=== PATIENT | male | born 1940 | race Caucasian/White ===

== ENCOUNTER 2017-04-05 11:20 | Outpatient (CLI) | payer MEDICARE | END 2017-04-05 11:21 | disposition home or self-care (01) | LOC: BICRAD 11:20 | PROVIDERS: ATTEND Family Medicine | DX: R05 Cough (principal); R07.9 Chest pain, unspecified; R06.02 Shortness of breath; R50.9 Fever, unspecified; K44.9 Diaphragmatic hernia without obstruction or gangrene | CPT/HCPCS: 71046 ==

== ENCOUNTER 2018-04-11 21:30 | Observation (INO) | payer MEDICARE ==
[2018-04-11 22:37] LABS: #Eosinphils 0.1 thou/uL (0.0-0.7); #Lymphocytes 1.7 thou/uL (1.20-3.40); #Monocytes 0.9 thou/uL (0.11-0.59); #Neutrophils 10.1 thou/uL (1.40-6.50); %Basophils 0.1 % (0.0-1.0); %Eosinophils 0.4 % (0.0-10.0); %Lymphocytes 13.2 % (21.0-51.0); %Monocytes 7.2 % (0.0-10.0); Hemoglobin 13.4 g/dL (14.0-18.0); Mean Corpuscular HGB CONC 31.4 g/dL (32.0-36.0); Mean Corpuscular Hemoglobin 26.2 pg (27.0-31.0); Mean Corpuscular Volume 83.2 fL (78.0-98.0); Mean Platelet Volume 8.4 fL (7.4-10.4); Platelet Count 266 thou/uL (130-400); RBC Distribution Width 13.5 % (11.5-14.5); Red Blood Cell (RBC) Count 5.12 mill/uL (4.70-6.10); White Blood Cell (WBC) Count 12.8 thou/uL (4.8-10.8)
[2018-04-11 23:00] LABS: ALT (SGPT) 14 U/L (8-55); AST (SGOT) 17 U/L (5-34); Albumin 3.8 g/dL (3.4-4.8); Alkaline Phosphatase 111 U/L (40-150); Anion Gap 13 mmol/L (10-20); BUN (Urea Nitrogen) 16 mg/dL (8.4-25.7); Bilirubin, Total 1.9 mg/dL (0.2-1.2); Calc. Creatinine Clearance 0 mL/min (70-130); Calcium 9.3 mg/dL (7.8-10.44); Carbon Dioxide 28 mmol/L (23-31); Chloride 99 mmol/L (98-107); Estimated GFR-MDRD 83; Globulin 3.5 g/dL (2.4-3.5); Glucose 119 mg/dL (83-110); Lipase 24 U/L (8-78); Potassium 3.3 mmol/L (3.5-5.1); Protein, Total 7.3 g/dL (5.8-8.1); Sodium 137 mmol/L (136-145)
--- NOTE | 2018-04-11 23:05 | RAD ---
EXAM: CHEST ONE VIEW: 04/11/18 HISTORY: Chest pain. COMPARISON: 04/11/18. Heart size is within normal limits. Evidence for hiatal hernia. Biapical pleural thickening. No confl uent pneumonia, overt edema or pleural effusion. IMPRESSION: Stable chest. Mild stable chronic changes. Evidence for hiatal hernia. No acute process. POS: [facility]
[2018-04-12] MEDS ORDERED: Nitroglycerin 0.4 MG TAB (25 Tab Bottle) ONE (00:29)
[2018-04-12] MEDS ORDERED: Acetaminophen 500 MG TAB ONE (00:34)
--- NOTE | 2018-04-12 01:06 | PDOC.FPRHP ---
- History of Present Illness Chief Complaint: chest pain History of Present Illness: The patient is a 77YOM with a PMH significant for 3-vessel CAD, HTN, and HLD who presented to the ED in [place] per the urging of his daughter with a CC of chest pain that had been ongoing since 0300 on 04/11/18. The patient states that he was awoken from his sleep with a 6/10 pressure-like sensation in his left chest that radiated into his left neck and jaw. He reports that the pain was continuous and was finally relieved by PO tylenol given to him in the ED. He did take an excedrin and advil as home but neither helped. He reported worsening up the pain with deep inspiration as well. He denied any associated N/ V, diaphoresis, SOB, orthopnea, or PND. He did endorse a non-productive cough but denied any associated fever/chills or URI symptoms. ED Course: 1g PO tylenol - Allergies/Adverse Reactions Allergies Allergy/AdvReac Type Severity Reaction Status Date / Time Tetracyclines Allergy Verified 04/12/18 01:11 - Home Medications Medication Instructions Recorded Confirmed Type Amlodipine [Norvasc] 5 mg PO DAILY 04/12/18 04/12/18 History Aspirin 325 mg PO DAILY 04/12/18 04/12/18 History Atorvastatin Calcium 20 mg PO HS 04/12/18 04/12/18 History Folic Acid 1 mg PO DAILY 04/12/18 04/12/18 History Hydrochlorothiazide 25 mg PO DAILY 04/12/18 04/12/18 History Omeprazole 20 mg PO DAILY 04/12/18 04/12/18 History - History PMHx: 3 vessel CAD (non flow limiting) s/p cath in 2012, HTN, HLD, hearing impairment PSHx: marie, cataract surgery, tonsillectomy FHx: patient reports no family hx of heart disease. Social: Former smoker. Quit over 10 years ago. 30 pack year smoking hx. Drinks about 200 ml of vodka every 2-3 hours for 2-3 years. last drink about 12 pm on . Tried cocaine about 35 years ago. Lives with in [place]. Retired. - Review of Systems General: reports: fever/chills (101 at [place] [facility] according to patient). denies : fatigue Eyes: denies: eye pain, vision changes ENT: denies: nasal congestion, rhinorrhea Respiratory: reports: cough (dry cough) Cardiovascular: reports: chest pain. denies: palpitation, paroxysmal nocturnal dyspnea, orthopnea Gastrointestinal: denies: nausea, vomiting, diarrhea, abdominal pain Genitourinary: denies: dysuria, polyuria Skin: denies: rashes, lesions Musculoskeletal: denies: pain, tenderness, swelling Neurological: reports: other (random left arm tingling/pain). denies: numbness , weakness Psychological: denies: anxiety, depression - Vital signs BP: 145/61 HR: 81 RR: 20 Tmax: 48151.4F Pox: % on RA Wt: 102.1kg - Physical Exam Constitutional: NAD, awake, alert and oriented, well developed HEENT: normocephalic and atraumatic, grossly normal vision, MMM, other ( decreased hearing, wearing hearing aids) Neck: supple, FROM, no LAD, no JVD, no bruits Chest: no-tender to palpation Heart: RRR, normal S1/S2, no murmurs/rubs/gallops, pulses present, no edema Lungs: CTAB, no respiratory distress, good air movement, no rales/rhonchi, no wheezing Abdomen: soft, non-tender, bowel sounds present Musculoskeletal: normal structure, ROM grossly normal Neurological: no focal deficit, CN II-XII intact (grossly) Skin: no rash/lesions, good turgor, other (telangiectasias on chest) Heme/Lymphatic: no unusual bruising or bleeding, no purpura Psychiatric: normal mood and affect, good judgment and insight, intact recent and remote memory FMR H&P: Results - Labs Result Diagrams: 04/11/18 22:26 04/11/18 22:25 Lab results: WBC 12.8 thou/uL (4.8-10.8) H 04/11/18 22:26 Hgb 13.4 g/dL (14.0-18.0) L 04/11/18 22:26 Hct 42.6 % (42.0-52.0) 04/11/18 22:26 MCV 83.2 fL (78.0-98.0) 04/11/18 22:26 Plt Count 266 thou/uL (130-400) 04/11/18 22:26 Neutrophils % 79.0 % (42.0-75.0) H 04/11/18 22:26 Sodium 137 mmol/L (136-145) 04/11/18 22:25 Potassium 3.3 mmol/L (3.5-5.1) L 04/11/18 22:25 Chloride 99 mmol/L (98-107) 04/11/18 22:25 Carbon Dioxide 28 mmol/L (23-31) 04/11/18 22:25 BUN 16 mg/dL (8.4-25.7) 04/11/18 22:25 Creatinine 0.89 mg/dL (0.7-1.3) 04/11/18 22:25 Glucose 119 mg/dL (83-110) H 04/11/18 22:25 Calcium 9.3 mg/dL (7.8-10.44) 04/11/18 22:25 Total Bilirubin 1.9 mg/dL (0.2-1.2) H 04/11/18 22:25 AST 17 U/L (5-34) 04/11/18 22:25 ALT 14 U/L (8-55) 04/11/18 22:25 Alkaline Phosphatase 111 U/L (40-150) 04/11/18 22:25 B-Natriuretic Peptide 92.6 pg/mL (0-100) 04/11/18 22:25 Serum Total Protein 7.3 g/dL (5.8-8.1) 04/11/18 22:25 Albumin 3.8 g/dL (3.4-4.8) 04/11/18 22:25 Lipase 24 U/L (8-78) 04/11/18 22:25 - EKG Interpretation EKG: NSR. - Radiology Interpretation Chest x-ray Status: report reviewed by me (mild hyperinflation w/ increased lung markings in B/L bases not c/w PNA or effusions) FMR H&P: A/P - Problem List (1) Atypical chest pain Current Visit: Yes Status: Acute Code(s): R07.89 - OTHER CHEST PAIN (2) Leukocytosis Current Visit: Yes Status: Acute Code(s): D72.829 - ELEVATED WHITE BLOOD CELL COUNT, UNSPECIFIED (3) Fever Current Visit: Yes Status: Acute Code(s): R50.9 - FEVER, UNSPECIFIED (4) CAD (coronary artery disease) Current Visit: Yes Status: Chronic Code(s): I25.10 - ATHSCL HEART DISEASE OF [place] CORONARY ARTERY W/O ANG PCTRS Qualifiers: Coronary Disease-Associated Artery/Lesion type: [place] artery (5) HTN (hypertension) Current Visit: Yes Status: Chronic Code(s): I10 - ESSENTIAL (PRIMARY) HYPERTENSION (6) Alcohol abuse Current Visit: Yes Status: Chronic Code(s): F10.10 - ALCOHOL ABUSE, UNCOMPLICATED (7) History of tobacco abuse Current Visit: Yes Status: Chronic Code(s): Z87.891 - PERSONAL HISTORY OF NICOTINE DEPENDENCE (8) HLD (hyperlipidemia) Current Visit: Yes Status: Acute Code(s): E78.5 - HYPERLIPIDEMIA, UNSPECIFIED (9) SIRS (systemic inflammatory response syndrome) Current Visit: Yes Status: Acute Code(s): R65.10 - SIRS OF NON-INFECTIOUS ORIGIN W/O ACUTE ORGAN DYSFUNCTION (10) Hypokalemia Current Visit: Yes Status: Acute Code(s): E87.6 - HYPOKALEMIA - Plan 77YOM with a PMH significant for known 3-vessel CAD found on LHC in 2012, HTN, and HLD who was transferred from the [place] ED after presenting there with a CC of chest pain that had been ongoing since 0300 yesterday. Atypical chest pain: - Patient reports that the pain was exacerbated with deep inspiration and was relieved with PO tylenol. However, patient has known CAD that did not require stent placement 5 years ago. Would benefit from a repeat stress test; however, patient has declined as he says he would not be willing to undergo any stenting or a repeat LHC should the stress test come back positive. States he only went to the ED because his daughter would not get off his case about it. Said he otherwise would have "stayed home and waited for the inevitable." - Could just be 2/2 pericarditis since relieved with tylenol. Will order PRN ibuprofen should pain return and see if this also helps alleviate his pain. CPR pending as well. - Will therefore not order a stress test but will order a TTE for in the AM to eval for pericarditis. - Will also order a FLP and adjust atorvastatin dosing accordingly based on results. - Will continue home ASA dosing. SIRS without a source: - Patient had a WBC of 12.8 with a Tmax of 100.4F on presentation to the ED in [place]. - CXR neg for infectious process. UA pending. - Will continue to monitor WBC with AM CBC. Hypokalemia: - K of 3.3 at [facility]. - Will order a repeat CMP in the AM and give an AM 40meq PO with breakfast. 3-vessel [facility]: - Aware, will resume home meds & adjust statin PRN based on AM FLP. HTN: - Aware, will resume home meds. HLD: - Aware, will resume home meds. EtOH Abuse: - Aware, last drink was 12:00 yesterday but patient reports quitting on and off randomly w/o issues but will order ASE protocol just to be safe. - Will counseling center director on need to quit. Dispo: Likely d/c later today w/ close follow-up with PCP. ABx: none IVFs: none DVT PPX: SCDs GI PPX: prilosec CODE STATUS: DNAR FMR H&P: Upper Level - Pertinent history 77 yr old male with PMH of 3 vessel CAD, HTN, HLD who presents for chest pain. Substernal chest pain that woke him from sleep at 0300 on 04/11/2018 (approx) 23 hours ago. [place] like pressure. Pain radiated to left neck and jaw. Pain was worse at 0300 (6 out of 10 scale). The pain lasted all day long. Tried excedrin and advil at home which gave him a little relief. Taking deep breaths made the pain worse. Lying flat seems to make pain worse. Took tylenol in ER which helped pain. No nausea, no SOB. No PND, orthopnea, LE swelling. - Pertinent findings EKG: normal sinus rhythm with no ST changes or T wave inversions Gen: no acute distress, well appearing neck: no carotid bruits bilaterally Heart: RRR, no murmurs, rubs, gallops Lungs: BLL very subtle crackles, poor inspiratory effort, no wheezes, rhales, rhonchi Chest: no chest wall tenderness Abd: soft, nontender - Plan Date/Time: 04/12/18 0106 I, [Tia Yao], have evaluated this patient and agree with findings/plan as outlined by human resources intern resident. Pertinent changes/additions are listed here. 77 yr old male with significant CAD who presents with chest pain with onset in sleep, radiation to left jaw, no diaphoresis, SOB, or nausea. Atypical chest pain suspected to be 2/2 pericarditis -temp of 100.4 in ER. Leukocytosis. borderline tachycardia. no tachypnea. -significant cardiac RF's include: Known 3 vessel CAD, HTN, HLD, hx of smoking -Will check CRP -initiate NSAID therapy for suspected pericarditis -obtain ECHO. -Although his clinical picture seems c/w pericarditis, he has known CAD and therfore I have recommended a NM stress test to patient however he declines this and states if it were positive he would not elect to have a heart cath or stent placement. Patient states he came in because his daughter wanted him to otherwise he would have stayed home and let the "inevitable happen." Patient states he understands the consequences could result in a heart attack and should this pain be related to progression of his CAD. 3 vessel CAD -last heart [place] [address] Choi with no flow limiting disease -normal EF at that time -see above Leukocytosis with low grade fever -PE and CXR not c/w acute PNA -no urinary symptoms however will check UA -no focal explanation except his possible pericarditis hyperbilirubinemia -recheck CMP in AM -nml AST/ALT -strong alcohol abuse hx HTN -monitor and restart home meds HLD -check FLP, consider increase to high intensity statin if warranted alcohol abuse -will place patient on ASE protocol -alcohol cessation counseling provided PCP: Daniel Cardiology: Dr. Choi Diet: HH DVT ppx: SCDs GI ppx: None DISPO: anabel to tele obs. given that patient is declining an inpatient stress test, he will likely have a very short 1 or less midnight stay and be discharged home. Addendum - Attending - Attending Attestation Date/Time: 04/12/18 1655 I personally evaluated the patient and discussed the management with Dr. Cifuentes. I agree with the History, Examination, Assessment and Plan documented above with any addition or exceptions noted below. The patient presented with chest pain overnight that improved with tylenol and was exacerbated by deep inspiration. The patient has a known history of CAD. Patient is refusing a stress test despite multiple physicians recommending it. Will get an echo. Pt with history of heavy alcohol use. ASE protocol in place. He states he wants to quit drinking. Will monitor for signs of withdrawal and consider librium taper. We have discussed the risks and benefits of stress test.
[2018-04-12 02:27] LABS: Troponin I Less than 0.010 ng/mL (< 0.028)
[2018-04-12] MEDS ORDERED: Ibuprofen 800 MG TAB PO PRN (05:15)
[2018-04-12] MEDS ORDERED: Ondansetron ODT 4 MG TAB PO PRN (05:15)
[2018-04-12 05:50] LABS: Cardiac Risk 2.3 (Less than 4.5)
[2018-04-12 06:11] LABS: Bilirubin Negative (Negative); Blood, Urine Trace (Negative); Glucose, Urine (Dipstick) Negative (Negative); Leukocyte Negative (Negative); Nitrite Negative (Negative); Protein, Urine (Dipstick) Negative (Neg-Trace); Specific Gravity, Urine 1.015 (1.005-1.030)
[2018-04-12 06:24] LABS: Bacteria/HPF Rare-Few HPF (None Seen); Clarity Clear (Clear); RBC/HPF 0-3 HPF (0-3); Squamous Epithelial 0-3 HPF (0-3); WBC/HPF 0-3 HPF (0-3)
[2018-04-12] MEDS ORDERED: Folic Acid 1 MG TAB ONE (07:52)
[2018-04-12] MEDS ORDERED: Aspirin 325 MG TAB ONE (07:52)
[2018-04-12] MEDS ORDERED: Folic Acid 1 MG TAB PO SCH (09:00)
[2018-04-12] MEDS ORDERED: Aspirin 325 MG TAB PO SCH (09:00)
[2018-04-12] MEDS ORDERED: Amlodipine 5 MG TAB PO SCH (09:00)
[2018-04-12] MEDS ORDERED: Hydrochlorothiazide 25 MG TAB PO SCH (09:00)
--- NOTE | 2018-04-12 12:06 | PDOC.EVN ---
Event Note - Event Note Event Note: Conversation with Mr. Starkey, his daughter and Dr. Adams. Patient desires to go home. Flu negative. Stress test recommended and patient refused. We were waiting on echo, however patient and daughter do not wish to wait and desire outpatient workup and echo. Daughter has appt scheduled with Dr. Choi 04/28 and plans to call Saturday to try to get earlier appointment. Patient counseled to return to the ER if chest pain returns. Mr. Starkey says that he quit drinking alcohol yesterday. Recommended librium taper for discharge, however patient refused. He notes he has never had withdrawal symptoms in past. Discussed risk of seizures and DTs. Recommended immediate return to ED if any withdrawal symptoms occur. Plan for discharge with close outpatient follow up and return precautions given.
[2018-04-12] MEDS ORDERED: Atorvastatin Calcium 40 MG TAB PO SCH (21:00)
[2018-04-12] MEDS ORDERED: Atorvastatin Calcium 20 MG TAB PO SCH (21:00)
--- NOTE | 2018-04-15 14:52 | DIS ---
DATE OF ADMISSION: 04/11/2018 DATE OF DISCHARGE: 04/12/2018 RESIDENT: Colin Andrews DO CONSULTS: None. PROCEDURES: None. IMAGING: Echocardiogram performed, results to be followed up within clinic. DISCHARGE MEDICATIONS: 1. Omeprazole 20 mg p.o. daily. 2. Hydrochlorothiazide 25 mg p.o. daily. 3. Folic acid 1 mg p.o. daily. 4. Atorvastatin 40 mg p.o. at bedtime. 5. Amlodipine 5 mg p.o. daily. 6. Aspirin 325 mg p.o. daily. Discontinued medications: Atorvastatin 20 mg at bedtime. PRIMARY DIAGNOSIS: Atypical chest pain. SECONDARY DIAGNOSES: 1. Systemic inflammatory response syndrome criteria. 2. Hypokalemia. 3. Coronary artery disease. 4. Hypertension. 5. Hyperlipidemia. 6. Alcohol abuse. HISTORY OF PRESENT ILLNESS/HOSPITAL COURSE: Mr. Starkey is a 77-year-old male, who presents to the emergency department at the insistence of his daughter with a chief complaint of chest pain. He reports that the pain awoke him from sleep. It was pressure-like and radiated to his left upper jaw. He reports pain is continuous and finally relieved by p.o. Tylenol worsening pain with deep inspiration. He denied any associated nausea, vomiting, diaphoresis, or shortness of breath. He does report a nonproductive cough, but not any associated fever, chills, or URI symptoms. The patient was adamant that he does not want to undergo a stress test with results where he would not get another heart catheterization DNR and did not want any further workup. Risks and benefits were explained of bleeding without further workup including possible or severe disability. The patient verbalized understanding. Communicated this with his daughter as well. The patient and daughter state that we will do outpatient workup for these things. DISPOSITION: Guarded. DISCHARGE INSTRUCTIONS: 1. Location: Home. 2. Diet: Heart healthy, low-sodium. 3. Activity: As tolerated. 4. Followup: Follow up with wireless watcher and PCP as soon as possible for outpatient workup for further testing of chest pain. Job ID: [id number]
== END 2018-04-12 12:52 | disposition home or self-care (01) ==
LOC: ERS 21:30 → ERHOLD 23:42
PROVIDERS: ADMIT Family Medicine; ATTEND Family Medicine
DX: R07.89 Other chest pain (principal); R65.10 Systemic inflammatory response syndrome (SIRS) of non-infectious origin without acute organ dysfunction; E87.6 Hypokalemia; I10 Essential (primary) hypertension; I25.10 Atherosclerotic heart disease of native coronary artery without angina pectoris; I34.0 Nonrheumatic mitral (valve) insufficiency; I35.8 Other nonrheumatic aortic valve disorders; I36.1 Nonrheumatic tricuspid (valve) insufficiency; E78.5 Hyperlipidemia, unspecified; D72.829 Elevated white blood cell count, unspecified; F10.10 Alcohol abuse, uncomplicated; Z90.49 Acquired absence of other specified parts of digestive tract; Z88.1 Allergy status to other antibiotic agents; Z90.89 Acquired absence of other organs; Z87.891 Personal history of nicotine dependence; Z79.82 Long term (current) use of aspirin; Z79.899 Other long term (current) drug therapy
CPT/HCPCS: 71045; 80053; 80061; 81001; 83690; 83880; 84484 ×2; 85025; 86140; 87804 ×2; 93005; 93306; 99285; G0378; 36415

== ENCOUNTER 2022-05-25 05:55 | Day surgery (SDC) | payer MEDICARE ==
[2022-05-24 09:59] VITALS: BMI 26.9
[2022-05-25] MEDS ORDERED: PROPOFOL 40 ML ONE (06:43)
[2022-05-25] MEDS ORDERED: Lidocaine 1% PF 5 ML VIAL ONE (07:49)
[2022-05-25] MEDS ORDERED: PROPOFOL 200 MG/20 ML VIAL ONE (07:49)
[2022-05-25] MEDS ORDERED: Dronedarone HCl 400 MG TAB ONE (08:11)
== END 2022-05-25 09:20 | disposition home or self-care (01) ==
LOC: SDC 05:55
PROVIDERS: ATTEND Internal Medicine Cardiovascular Disease
PROC: B246ZZ4 Ultrasonography of Right and Left Heart, Transesophageal (ICD-10-PCS; principal; 2022-05-25)
PROC: 5A2204Z Restoration of Cardiac Rhythm, Single (ICD-10-PCS; 2022-05-25)
DX: I48.91 Unspecified atrial fibrillation (principal); I08.3 Combined rheumatic disorders of mitral, aortic and tricuspid valves; I10 Essential (primary) hypertension; I25.10 Atherosclerotic heart disease of native coronary artery without angina pectoris; E78.2 Mixed hyperlipidemia; K21.9 Gastro-esophageal reflux disease without esophagitis; Z87.891 Personal history of nicotine dependence; Z79.01 Long term (current) use of anticoagulants; Z79.899 Other long term (current) drug therapy; Z88.1 Allergy status to other antibiotic agents
CPT/HCPCS: 92960; 93005; 93010; 93312; J2704

== ENCOUNTER 2024-02-04 14:48 | Inpatient (IN) | payer MEDICARE ==
[2024-02-04 15:24] LABS: #Basophils 0.03 10x3/uL (0.0-0.2); #Eosinophils Less than 0.03 10x3/uL (0.0-0.7); %Basophils 0.5 % (0.0-1.0); %Eosinophils 0.3 % (0.0-10.0); %Lymphocytes 16.2 % (21.0-51.0); %Monocytes 8.5 % (0.0-10.0); Hematocrit 31.3 % (42.0-52.0); Hemoglobin 9.1 g/dL (14.0-18.0); Mean Corpuscular HGB CONC 29.1 g/dL (32.0-36.0); Mean Corpuscular Hemoglobin 20.3 pg (27.0-31.0); Mean Corpuscular Volume 69.9 fL (78.0-98.0); Mean Platelet Volume 9.2 fL (7.4-10.4); Platelet Count 292 10x3/uL (130-400); RBC Distribution Width 18.2 % (11.5-14.5); Red Blood Cell (RBC) Count 4.48 mill/uL (4.70-6.10)
[2024-02-04 15:42] LABS: Troponin I Less than 0.010 ng/mL (< 0.028)
[2024-02-04 15:43] LABS: Acetaminophen Less than 10 mcg/mL (Less than 10); Alcohol 196.4 mg/dL (Less than 10); Magnesium 1.9 mg/dL (1.6-2.6); Salicylate Less than 8.0 mg/dL (Less than 8.0)
[2024-02-04 15:45] LABS: ALT (SGPT) 18 U/L (8-55); AST (SGOT) 31 U/L (5-34); Albumin 3.2 g/dL (3.4-4.8); Alkaline Phosphatase 125 U/L (40-110); Anion Gap 15 mmol/L (10-20); BUN (Urea Nitrogen) 18 mg/dL (8.4-25.7); Bilirubin, Total 1.5 mg/dL (0.2-1.2); Calc. Creatinine Clearance 0 mL/min (70-130); Calcium 8.3 mg/dL (7.8-10.44); Carbon Dioxide 23 mmol/L (23-31); Chloride 103 mmol/L (98-107); Estimated GFR 87; Globulin 3.6 g/dL (2.4-3.5); Glucose 93 mg/dL (83-110); Potassium 3.9 mmol/L (3.5-5.1); Protein, Total 6.8 g/dL (5.8-8.1); Sodium 137 mmol/L (136-145)
[2024-02-04 15:53] LABS: Burr Cells SLIGHT = 2-5 cells HPF (0-1); Hypochromia SLIGHT = 6-15 cells HPF (0-5); Microcytosis SLIGHT = 6-15 cells HPF (0-5); Platelet Adequacy Comment Platelets Normal; Polychromasia SLIGHT = 2-3 cells HPF (0-2)
[2024-02-04] MEDS ORDERED: Furosemide 20 MG (2 mL) VIAL ONE (17:08)
[2024-02-04] MEDS ORDERED: Ondansetron ODT 4 MG TAB PO PRN (18:53)
[2024-02-04] MEDS ORDERED: Electrolyte Replacement Protocol 1 EACH FS SCH (19:00)
[2024-02-04 19:17] LABS: Bacteria/HPF None Seen HPF (None Seen); Bilirubin Negative (Negative); Blood, Urine Negative (Negative); CAUTI Indications for Culture Alt mental st,lethar; Clarity Clear (Clear); Glucose, Urine (Dipstick) Normal (Negative); Ketone, Urine Trace mg/dL (Negative); Leukocyte Negative Leu/uL (Negative); Nitrite Negative (Negative); Protein, Urine (Dipstick) 20 mg/dL (Neg-Trace); RBC/HPF 0-3 HPF (0-3); Squamous Epithelial None Seen HPF (0-3); Urobilinogen Normal mg/dL (Less than 2); WBC/HPF 0-3 HPF (0-3); pH, Urine 5.5 (5.0-9.0)
[2024-02-04 19:18] LABS: Urine Culture Reflex No No
[2024-02-04 19:22] LABS: Amphetamine Not Detected (NotDetected); Barbiturates Screen Not Detected (NotDetected); Benzodiazepine Screen Detected (NotDetected); Cocaine Metabolite Screen Not Detected (NotDetected); Methadone Not Detected (NotDetected); Methamphetamine Not Detected (NotDetected); Opiate Screen Not Detected (NotDetected); Oxycodone Screen Detected (NotDetected); Phencyclidine (PCP) Not Detected (NotDetected); THC/Cannabinoid Screen Not Detected (NotDetected); Tricyclic Screen Not Detected (NotDetected)
[2024-02-04 20:51] VITALS: BMI 28.7
[2024-02-04] MEDS: Furosemide 20 MG (2 mL) VIAL SLOW IVP SCH (20:51)
[2024-02-04] MEDS: Folic Acid 1 MG TAB PO SCH (20:55)
[2024-02-04] MEDS: Apixaban 5 MG TAB PO SCH (20:55)
[2024-02-04] MEDS: Multivit, Therapeutic 1 TAB PO SCH (20:55)
[2024-02-04] MEDS: chlordiazePOXIDE HCl 5 MG CAP PO SCH (21:14)
[2024-02-05] MEDS ORDERED: Lorazepam 1 MG TAB PO PRN (00:50)
[2024-02-05] MEDS: Magnesium 2 GM/50 ML(in water) 2 GM in Premix 1 BAG IVPB SCH (01:23)
[2024-02-05 04:46] LABS: #Basophils 0.04 10x3/uL (0.0-0.2); %Basophils 0.5 % (0.0-1.0); %Eosinophils 0.5 % (0.0-10.0); %Lymphocytes 9.3 % (21.0-51.0); %Monocytes 9.7 % (0.0-10.0); %Neutrophils 79.1 % (42.0-75.0); Hemoglobin 9.3 g/dL (14.0-18.0); Mean Corpuscular HGB CONC 29.1 g/dL (32.0-36.0); Mean Corpuscular Hemoglobin 20.2 pg (27.0-31.0); Mean Corpuscular Volume 69.4 fL (78.0-98.0); Mean Platelet Volume 9.7 fL (7.4-10.4); Platelet Count 297 10x3/uL (130-400); RBC Distribution Width 18.6 % (11.5-14.5); Red Blood Cell (RBC) Count 4.61 mill/uL (4.70-6.10)
[2024-02-05 04:52] LABS: Iron 19 ug/dL (65-175); Iron Binding Capacity, Total 498 mcg/dL (261-462)
[2024-02-05 05:00] LABS: ALT (SGPT) 20 U/L (8-55); AST (SGOT) 36 U/L (5-34); Albumin 3.5 g/dL (3.4-4.8); Alkaline Phosphatase 139 U/L (40-110); Anion Gap 16 mmol/L (10-20); BUN (Urea Nitrogen) 19 mg/dL (8.4-25.7); Bilirubin, Total 1.9 mg/dL (0.2-1.2); Calc. Creatinine Clearance 87 mL/min (70-130); Calcium 8.8 mg/dL (7.8-10.44); Carbon Dioxide 25 mmol/L (23-31); Chloride 102 mmol/L (98-107); Estimated GFR 85; Globulin 3.7 g/dL (2.4-3.5); Glucose 103 mg/dL (83-110); Iron 19 ug/dL (65-175); Iron Binding Capacity, Total 496 mcg/dL (261-462); Potassium 3.7 mmol/L (3.5-5.1); Protein, Total 7.2 g/dL (5.8-8.1); Sodium 139 mmol/L (136-145)
[2024-02-05] MEDS ORDERED: Electrolyte Replacement Protocol FS PRN (07:00)
[2024-02-05] MEDS: Acetaminophen 500 MG TAB PO SCH (08:15)
[2024-02-05] MEDS: Pantoprazole DR 40 MG TAB PO SCH (08:17)
[2024-02-05] MEDS: Aspirin 81 mg Enteric Coated Tablet PO SCH (08:17)
[2024-02-05] MEDS: Atorvastatin Calcium 20 MG TAB PO SCH (08:17)
[2024-02-05] MEDS: Hydrochlorothiazide 25 MG TAB PO SCH (08:17)
[2024-02-05] MEDS: chlordiazePOXIDE HCl 25 MG CAP PO SCH ×3 (08:18→22:16)
[2024-02-05] MEDS: dilTIAZem CD 120 MG CAP PO SCH (08:18)
[2024-02-05] MEDS: Potassium Chloride 20 MEQ TAB PO SCH (08:18)
[2024-02-05] MEDS: FLU (Fluad Triv) TS24-25 (65UP)/MF59C/PF 45 MCG/0.5 ML Syringe IM ONE (08:28)
[2024-02-05] MEDS ORDERED: Folic Acid 1 MG TAB PO SCH (09:00)
[2024-02-05] MEDS ORDERED: Pantoprazole DR 40 MG TAB PO SCH (09:00)
[2024-02-05] MEDS ORDERED: hydrALAZINE 20 MG/ML VIAL SLOW IVP PRN (10:26)
[2024-02-05] MEDS: guaiFENesin ER 600 MG TAB PO SCH (11:00)
[2024-02-05 11:16] VITALS: BMI 28.7
[2024-02-05] MEDS: Thiamine HCl 200 MG/2 ML VIAL SLOW IVP SCH (21:19)
[2024-02-05] MEDS: Acetaminophen 325 MG TAB PO PRN (21:20)
[2024-02-05] MEDS: hydrOXYzine 25 MG TAB PO PRN (21:29)
[2024-02-06 04:51] LABS: #Basophils 0.04 10x3/uL (0.0-0.2); %Basophils 0.4 % (0.0-1.0); %Eosinophils 1.4 % (0.0-10.0); %Monocytes 7.9 % (0.0-10.0); %Neutrophils 79.7 % (42.0-75.0); Hematocrit 29.9 % (42.0-52.0); Hemoglobin 8.7 g/dL (14.0-18.0); Mean Corpuscular HGB CONC 29.1 g/dL (32.0-36.0); Mean Corpuscular Hemoglobin 20.1 pg (27.0-31.0); Mean Corpuscular Volume 69.2 fL (78.0-98.0); Mean Platelet Volume 10.2 fL (7.4-10.4); Platelet Count 242 10x3/uL (130-400); RBC Distribution Width 18.6 % (11.5-14.5); Red Blood Cell (RBC) Count 4.32 mill/uL (4.70-6.10)
[2024-02-06 05:34] LABS: Anisocytosis SLIGHT = 6-15 cells HPF (0-5); Hypochromia SLIGHT = 6-15 cells HPF (0-5); Microcytosis SLIGHT = 6-15 cells HPF (0-5); Platelet Adequacy Comment Platelets Normal; Polychromasia SLIGHT = 2-3 cells HPF (0-2)
[2024-02-06 06:14] LABS: ALT (SGPT) 16 U/L (8-55); AST (SGOT) 30 U/L (5-34); Albumin 3.1 g/dL (3.4-4.8); Alkaline Phosphatase 125 U/L (40-110); Anion Gap 13 mmol/L (10-20); BUN (Urea Nitrogen) 12 mg/dL (8.4-25.7); Bilirubin, Total 2.8 mg/dL (0.2-1.2); Calc. Creatinine Clearance 96 mL/min (70-130); Calcium 8.6 mg/dL (7.8-10.44); Carbon Dioxide 25 mmol/L (23-31); Chloride 101 mmol/L (98-107); Estimated GFR 88; Globulin 3.3 g/dL (2.4-3.5); Glucose 104 mg/dL (83-110); Potassium 3.2 mmol/L (3.5-5.1); Protein, Total 6.4 g/dL (5.8-8.1); Sodium 136 mmol/L (136-145)
[2024-02-06] MEDS: Potassium Chloride 20 MEQ TAB PO SCH ×2 (06:56→14:18)
[2024-02-06] MEDS: Ferrous Sulfate 325 MG TAB PO SCH (09:17)
[2024-02-06] MEDS: Losartan 25 MG TAB PO SCH (09:17)
[2024-02-06] MEDS: Furosemide 20 MG (2 mL) VIAL SLOW IVP SCH (09:21)
[2024-02-06] MEDS ORDERED: Furosemide 20 MG (2 mL) VIAL SLOW IVP SCH (09:30)
[2024-02-06 13:54] VITALS: BP 138/66; TEMP 98.1
[2024-02-06] MEDS: Furosemide 20 MG TAB PO SCH (14:19)
[2024-02-07] MEDS ORDERED: chlordiazePOXIDE HCl 25 MG CAP PO SCH (02:00)
[2024-02-07] MEDS ORDERED: Thiamine 100 MG TAB PO SCH (09:00)
[2024-02-08] MEDS ORDERED: chlordiazePOXIDE HCl 25 MG CAP PO SCH (14:00)
== END 2024-02-06 16:35 | disposition left against medical advice (07) | DRG 292 ==
LOC: ERS 14:48 → 2NO 18:07
PROVIDERS: ADMIT Student in an Organized Health Care Education/Training Program; ATTEND Student in an Organized Health Care Education/Training Program
DX: I11.0 Hypertensive heart disease with heart failure (principal); F10.139 Alcohol abuse with withdrawal, unspecified; E78.5 Hyperlipidemia, unspecified; I48.91 Unspecified atrial fibrillation; Z66 Do not resuscitate; F10.129 Alcohol abuse with intoxication, unspecified; D64.9 Anemia, unspecified; I50.9 Heart failure, unspecified; Z88.8 Allergy status to other drugs, medicaments and biological substances; Z79.899 Other long term (current) drug therapy; Z90.49 Acquired absence of other specified parts of digestive tract; Z79.82 Long term (current) use of aspirin; Z98.890 Other specified postprocedural states; Z87.891 Personal history of nicotine dependence
CPT/HCPCS: 36415; 70450; 71045; 72125; 76705; 80053; 80306; 80307; 81001; 82550; 82728; 83540; 83550; 83735; 83880; 84443; 84484; 85025; 93005; 96374; 96375; J1940; J3411; J3475